=== PATIENT | male | born 1950 | race Caucasian/White ===

== ENCOUNTER 2021-12-17 05:27 | Day surgery (SDC) | payer MEDICARE, OTHER, SELFPAY ==
[2021-12-17 06:06] VITALS: BP 133/74; PULSE 79; RESP 16; TEMP 36.8; O2SAT 97; BMI 37.0
[2021-12-17] MEDS: Lactated Ringers 1,000 ML 15 ML IV (06:25)
[2021-12-17] MEDS: Cefazolin 2 GM in 0.9% Normal Saline 100 ML IV (07:18)
[2021-12-17] MEDS: 0.9% Normal Saline (Pres. free 10 ML Vial (07:38)
--- NOTE | 2021-12-17 07:41 | PCM.HP.STD ---
HPI - General General Date of Service: 12/17/21 Chief Complaint: Prostate cancer HPI Narrative KRISTIN HERNÁNDEZ, is a 71 M who presents for placement of spacer organ at general risk matrix spacer O AR, organ to use the spacer with contrast ashly to help with the planning of his radiation treatment. [facility] Medical History (Updated 12/08/21 @ 10:52 by Aparna Tineo) Arthritis Cancer Cardiology follow-up encounter History of atrial fibrillation History of echocardiogram Hypertension Non-smoker Prostate disease Wears glasses Home Medications amlodipine 5 mg tablet 5 mg PO DAILY 12/08/21 [History Last Taken 12/17/21 04:00] atenolol 50 mg tablet 50 mg PO BID 12/08/21 [History Last Taken 12/17/21 04:00] hydrochlorothiazide 25 mg tablet 25 mg PO DAILY 12/08/21 [History Last Taken Unknown] lisinopril 40 mg tablet 40 mg PO DAILY 12/08/21 [History Last Taken 12/17/21 04:00] rivaroxaban 20 mg tablet (Xarelto) 20 mg PO DAILY 12/08/21 [History Last Taken 12/12/21] Allergy/AdvReac Type Severity Reaction Status Date / Time No Known Allergies Allergy Verified 12/17/21 05:55 Surgical History (Updated 12/08/21 @ 10:52 by Aparna Tineo) History of cardiac radiofrequency ablation Hx of colonoscopy Hx of eye surgery Hx of inguinal hernia repair Hx of prostate biopsy Hx of total knee arthroplasty Hx of total shoulder replacement Social History Smoking Status: Never smoker Vital Signs Vital Signs Vital Signs: 12/17/21 06:06 12/17/21 06:06 Temperature 98.3 F Temperature Source Temporal Pulse Rate 79 Respiratory Rate 16 Respiratory Pattern Normal Blood Pressure 133/74 H Blood Pressure Mean 93 Blood Pressure Source Monitor Blood Pressure Position Semi-Fowlers Blood Pressure Location Left Arm Pulse Ox 97 Oxygen Delivery Method Room Air Weight Weight: 101 kg Body Mass Index (BMI) 37.0
--- NOTE | 2021-12-17 07:42 | DCINST_ITS ---
Discharge Instructions Diet Discharge Diet: No restrictions, Light diet - advance as tolerated and Soft diet Activity Discharge Activity: Return to Normal Activity Follow Up Care Test Results: Test results from this visit will be discussed in further detail at your follow- up appointment, if applicable. Discharge Plan Admission Attending Provider: Alireza Peterson Primary Care Provider: Sukh Randall Discharge Orders/Prescriptions Prescriptions: No Action amlodipine 5 mg Tablet 5 mg PO DAILY hydrochlorothiazide 25 mg Tablet 25 mg PO DAILY lisinopril 40 mg Tablet 40 mg PO DAILY atenolol 50 mg Tablet 50 mg PO BID Xarelto 20 mg Tablet 20 mg PO DAILY Rx Instructions: must administer with evening meal Referrals / Follow Up: Sukh Randall MD [Primary Care Provider] - Disposition Disposition (needs filled in before D/C Order can be placed): Home, Self Care
--- NOTE | 2021-12-17 07:43 | PCM.OPRPT ---
Report of Operation Date of Procedure: 12/17/21 Pre-Operative Diagnosis: Prostate cancer Post-Operative Diagnosis: Same Surgery/Procedure Performed:: Placement of spacer gel matrix for prostate cancer, Spacer OAR Janine Description of Surgical Findings:: Patient was taken back to the operating room after smooth induction of anesthesia he was placed supine on the table. The genitals and perineum were prepped and draped in usual sterile fashion. I then introduced a biplanar ultrasound probe into the rectum and performed ultrasonography and identified the Denonvilliers' fascia the prostate mid base and apex and seminal vesicles. The spacer gel mix Spacer OAR Janine (with contrast) was then prepared on the back table per manufactures instruction. Under ultrasound guidance in the midline perineum a bevel needle down we advanced through the perineum below the prostate into the space of Denonvilliers' fascia. This space which could be identified by ultrasound with a bright white layer between the prostate and the rectum. I then injected a puff of normal saline to identify the space further. After I confirmed that the needle was in the correct space in the mid prostate and the space of Denonvilliers' fascia between the rectum and the prostate. Then over the course of 15 seconds the gel matrix was injected slowly there was nice separation between the prostate and the rectum at the gel matrix was injected. The position of the gel matrix was confirmed by ultrasound. Then the injection needle was removed intact. Patient's perineum was cleaned patient was taken out of stirrups and then taken back to the PACU in good condition. Surgeon: Alireza Peterson Type of Anesthesia: General Drains: none
[2021-12-17 07:48] VITALS: BP 118/66; BP 133/74; PULSE 75; RESP 14; TEMP 37.1; O2SAT 95
[2021-12-17 08:00] VITALS: BP 133/74; BP 134/68; PULSE 77; RESP 16; O2SAT 93
[2021-12-17 08:10] VITALS: BP 117/72; BP 133/74; PULSE 77; RESP 16; TEMP 36.9; O2SAT 93
[2021-12-17 08:35] VITALS: BP 133/74
== END 2021-12-17 09:10 | disposition home or self-care (01) ==
LOC: SDC 05:28 → AC 05:31
PROVIDERS: PCP Family Medicine; Referring Provider Urology; Visit Provider Urology
PROC: (CPT 55874; principal; 2021-12-17 07:15)
DX: C61 Malignant neoplasm of prostate (principal); I48.91 Unspecified atrial fibrillation; I10 Essential (primary) hypertension; Z79.899 Other long term (current) drug therapy
CPT/HCPCS: 55874; 00902; J7120; J2405; J3490